=== PATIENT | female | born 1995 ===

== ENCOUNTER 2022-12-08 09:32 | Observation (INO) | payer BC ==
[2022-12-08] MEDS ORDERED: Sodium Chloride 0.9% 10 ML Syringe FLUSH PRN (12:13)
[2022-12-08] MEDS ORDERED: Oxytocin/Lactated Ringers 10 UNIT/1,000 ML BAG IV SCH (12:15)
[2022-12-08] MEDS ORDERED: Lactated Ringers 1,000 ML IV SCH (12:15)
[2022-12-08 12:36] LABS: HEMOGLOBIN 12.6 gm/dl (11.2-15.7); MEAN CORPUSCULAR HEMOGLOBIN 29.5 pg (25.6-32.2); MEAN CORPUSCULAR HGB CONC 33.2 g/dl (32.2-35.5); MEAN PLATELET VOLUME 10.4 fl (9.4-12.3); PLATELET COUNT,PLT 287 K/mm3 (182-369); RED BLOOD CELL COUNT 4.27 M/mm3 (3.98-5.22); WHITE BLOOD CELL COUNT,WBC 12.83 K/mm3 (3.98-10.04)
[2022-12-08] MEDS ORDERED: Sodium Chloride 0.9% 10 ML Syringe FLUSH SCH (21:00)
== END 2022-12-08 13:30 | disposition home or self-care (01) ==
LOC: JD.OB 09:32
PROVIDERS: ADMIT Family Medicine; ATTEND Family Medicine
DX: O36.8130 Decreased fetal movements, third trimester, not applicable or unspecified (principal); Z3A.38 38 weeks gestation of pregnancy; Z79.899 Other long term (current) drug therapy
CPT/HCPCS: 36415; 59025; 85027; 86592; G0378